=== PATIENT | male | born 1940 | race Caucasian/White ===

== ENCOUNTER 2016-10-13 08:04 | Day surgery (SDC) | payer MEDICARE ==
[~2016-10-13 08:04] MED LIST: LACTATED RINGERS 1,000 ML IV SCH
[2016-10-13 08:47] VITALS: RESP 16; TEMP 98.1
[2016-10-13 08:54] LABS: Glucose,Whole Blood 87 mg/dL (75-99)
[2016-10-13] MEDS ORDERED: LIDOCAINE 1% 20 ML VIAL (10MG/ML) FOR IV START INTRADERMA ONE (08:54)
[2016-10-13] MEDS ORDERED: PROPOFOL 10 MG/ML 20 ML VIAL IV ONE (09:29)
[2016-10-13] MEDS ORDERED: ePHEDrine 50 MG/ML 1 ML AMP ONE (09:29)
[2016-10-13] MEDS ORDERED: fentaNYL (PF) 50 MCG/ML 2 ML AMP ONE (09:29)
[2016-10-13] MEDS ORDERED: MIDAZOLAM 2 MG/2 ML VIAL ONE (09:29)
--- NOTE | 2016-10-13 10:22 | P.PCN ---
Date of Procedure: 10/13/16 Procedure(s) Performed: BRIEF HISTORY: Patient is a 76-year-old pleasant white male, scheduled for an elective colonoscopy as a part of evaluation of prior history of colon polyps. Last colonoscopy was in 5 years ago. PROCEDURE PERFORMED: Colonoscopy with snare polypectomy. PREOPERATIVE DIAGNOSIS: History of colon polyps. IV sedation per Anesthesia. PROCEDURE: After informed consent was obtained, the patient, was brought into the endoscopy unit. IV conscious sedation was administered by Anesthesia under continuous monitoring. Initially the Olympus CF-160 flexible video colonoscope was then inserted in the rectum, gradually advanced into the cecum with moderate to severe difficulty Careful examination was performed as the scope was gradually being withdrawn. Ileocecal valve and the appendiceal orifice were visualized and appeared normal. Prep was excellent. Mucosa of the cecum, ascending colon, transverse colon, descending colon, sigmoid colon, and rectum appeared normal. In the rectum there were 2 small 5 mm polyps removed by snare polypectomy. Moderate left sided diverticulosis seen. Retroflexion was performed in the rectum and no lesions were seen. The patient tolerated the procedure well. IMPRESSION: 2 small 5 mm distal rectal polyp status post snare polypectomy Sigmoid diverticulosis. RECOMMENDATIONS: Findings of this examination were discussed with the patient well as her family. He was advised to follow with the biopsy results. If the biopsy shows a tubular adenoma he can have a repeat colonoscopy in 5 years..
[2016-10-13 10:27] VITALS: BP 136/84; PULSE 67
== END 2016-10-13 10:50 | disposition home or self-care (01) ==
LOC: ORWHC2ENDO 08:04
PROVIDERS: ATTEND Internal Medicine Gastroenterology
DX: Z12.11 Encounter for screening for malignant neoplasm of colon (principal); Z86.010 Personal history of colon polyps; K62.1 Rectal polyp; K57.30 Diverticulosis of large intestine without perforation or abscess without bleeding; I25.10 Atherosclerotic heart disease of native coronary artery without angina pectoris; E78.5 Hyperlipidemia, unspecified; E11.9 Type 2 diabetes mellitus without complications; Z79.84 Long term (current) use of oral hypoglycemic drugs; Z79.82 Long term (current) use of aspirin; Z79.899 Other long term (current) drug therapy; Z87.891 Personal history of nicotine dependence
CPT/HCPCS: 88305; 45385; J2250; J3010; J2704

== ENCOUNTER → 2016-11-07 | Outpatient (CLI) | payer MEDICARE ==
[2016-11-07 13:23] LABS: Blood Urea Nitrogen 18 mg/dL (9-20); Non-African American GFR(MDRD) >60 (>60 ml/min/1.73 sqM)
--- NOTE | 2016-11-07 14:45 | CT ---
EXAMINATION TYPE: CT angio abd aorta wo/w con DATE OF EXAM: 11/07/2016 2:31 PM COMPARISON: 03/10/2016 HISTORY: AAA CT DLP: 2749 mGycm CONTRAST: CTA abdominal aorta with 3-D reconstruction is performed and without and with IV Contrast, patient i njected with 100 ml mL of Omnipaque 350. Contrast CTA of the abdominal aorta was performed from the lung apex through the base of the pelvis. 3-D reconstruction imaging obtained at a separate workstation. ABDOMENAL AORTA: There is a stable infrarenal abdominal aortic aneurysm measuring 4.3 cm in AP dimens ion and 6.3 cm in length. Aneurysm terminates at the level of the aortic bifurcation. Atheromatous ch anges noted. There is no evidence for dissection or paraaortic collection. Iliac vessels are mildly e ctatic without evidence for aneurysm. Branch vessels including the celiac artery, SMA, DELILAH and renal arteries are all patent. Lung bases: Chronic elevation right hemidiaphragm. LIVER/GB-cholecystectomy changes noted. PANCREAS- No significant abnormality is seen. SPLEEN- No significant abnormality is seen. ADRENALS- No significant abnormality is seen. KIDNEYS/BLADDER- No significant abnormality is seen. Simple cyst left kidney is unchanged. BOWEL- No Significant abnormality GENITAL ORGANS: No gross abnormality seen. LYMPH NODES- No greater than 1cm abdominal or pelvic lymph nodes areappreciated. OSSEOUS STRUCTURES- No significant abnormality is seen. OTHER- No significant abnormality is seen. IMPRESSION- Stable infrarenal abdominal aortic aneurysm as discussed without complicating matter.
== END | disposition home or self-care (01) ==
LOC: RADCTMAIN 12:47
PROVIDERS: ATTEND Internal Medicine Interventional Cardiology
DX: I71.4 Abdominal aortic aneurysm, without rupture (principal)
CPT/HCPCS: 82565; 84520; 75635; 36415; Q9967

== ENCOUNTER → 2017-08-16 | Outpatient (CLI) | payer MEDICARE ==
[2017-08-16 15:55] LABS: Blood Urea Nitrogen 19 mg/dL (9-20)
--- NOTE | 2017-08-16 16:48 | CT ---
EXAMINATION TYPE: CT angio abd aorta wo/w con DATE OF EXAM: 08/16/2017 COMPARISON: NONE HISTORY: Elevated blood pressure CT DLP: 2800 mGycm CONTRAST: CTA thoracic and abdominal aorta with 3-D reconstruction is performed and without and with IV Contras t, patient injected with 100 mL of Omnipaque 350. Contrast CTA of the abdominal aorta was performed from the lung bases through the base of the pelvis. 3-D reconstruction imaging obtained at a separate workstation. CONTRAST CT ABDOMEN AND PELVIS ABDOMINAL AORTA: Infrarenal abdominal aortic aneurysm measuring 4.7 cm in AP dimension. Aneurysm cam th is approximately 8.4 cm. There is mild mural thrombus seen. There is no evidence for complicating factor such as dissection, rupture or leak. Aneurysm neck is approximately 3.4 cm. Visualized branch vessels are patent. No periaortic collections seen. Iliac vessels are symmetric and nonaneurysmal. LIVER/GB-unusual hepatic morphology. Correlate for partial hepatectomy changes there is such a histor y. Correlate patient's surgical history. Elevation right hemidiaphragm. The gallbladder is surgically absent. PANCREAS- No significant abnormality is seen. SPLEEN- No significant abnormality is seen. ADRENALS- No significant abnormality is seen. KIDNEYS/BLADDER- No significant abnormality is seen. BOWEL- No Significant abnormality GENITAL ORGANS: No gross abnormality seen. LYMPH NODES- No greater than 1cm abdominal or pelvic lymph nodes areappreciated. OSSEOUS STRUCTURES- No significant abnormality is seen. OTHER- No significant abnormality is seen. IMPRESSION- 1. Infrarenal abdominal aortic aneurysm without complicating factor.
== END | disposition home or self-care (01) ==
LOC: RADCTMAIN 15:19
PROVIDERS: ATTEND Nurse Practitioner Adult Health
DX: I71.4 Abdominal aortic aneurysm, without rupture (principal)
CPT/HCPCS: 82565; 84520; 75635; 36415; Q9967

== ENCOUNTER → 2018-04-26 | Outpatient (CLI) | payer MEDICARE ==
--- NOTE | 2018-04-27 17:20 | CT ---
EXAMINATION TYPE: CT angio abd aorta w/Runoff DATE OF EXAM: 04/26/2018 COMPARISON: 08/16/2017 HISTORY: Abdominal aortic aneurysm, without rupture CT DLP: 1819.4 mGycm, Automated Exposure Control for Dose Reduction was Utilized. CONTRAST: CT scan of the abdomen and pelvis is performed with oral and with IV Contrast, patient injected with 125 mL of Isovue 370. Contrast CTA of the abdominal aorta was performed from the lung bases through t he base of the pelvis. 3-D reconstruction imaging obtained at a separate workstation. FINDINGS: LUNG BASES: There is chronic right hemidiaphragm elevation. Coronary artery calcifications are again seen. Subpleural reticulation indicative of pulmonary fibrosis and bibasilar atelectasis are also not ed. Subpleural deposition of fat is also seen. LIVER/GB: Partial hepatectomy is again suspected with irregular contour of the right hepatic lobe and surgical absence of the gallbladder. Low-density of the liver also relates to hepatic steatosis. PANCREAS: Atrophic changes noted throughout the pancreatic parenchyma. No ductal dilatation. SPLEEN: No significant abnormality is seen. ADRENALS: No significant abnormality is seen. KIDNEYS: There is mild cortical renal atrophy indicative of mild medical renal disease. Similar-appea ring left renal cyst is noted. Retroaortic left renal vein is incidentally seen. BOWEL: Scattered colonic diverticula are present without pericolonic fat stranding. LYMPH NODES: No greater than 1cm abdominal or pelvic lymph nodes are appreciated. OSSEOUS STRUCTURES: Multilevel degenerative disc disease is mild throughout the spine most exaggerate d at L5-S1. Mild tricompartmental arthropathy is seen of both knees and mild femoral acetabular arthr opathy is also noted VASCULAR: There is redemonstration of an infrarenal abdominal aortic aneurysm measuring approximately 4.8 x 4.8 cm, overall unchanged from the previous measurement of 4.7 cm given differences in measure ment technique. Again mild mural thrombus is noted. Craniocaudal dimension measures approximately 8.5 cm. No extent into the common iliac arteries. Mild atherosclerosis is seen of the femoral arteries a nd posterior tibial arteries with three-vessel runoff appreciated to the level of the mid tibial diap hyses. Distal to this contrast opacification of the arteries is poor likely due to bolus timing. IMPRESSION: 1. Overall stable fusiform infrarenal abdominal aortic aneurysm measuring approximately 4.8 cm withou t extent into the common iliac arteries. Mild atherosclerosis is noted throughout the vasculature wit h no focal occlusion or significant stenosis (greater than 50% luminal diameter). 2. 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
== END | disposition home or self-care (01) ==
LOC: RADCTMAIN 12:53
PROVIDERS: ATTEND Internal Medicine Interventional Cardiology
DX: I71.4 Abdominal aortic aneurysm, without rupture (principal); I70.209 Unspecified atherosclerosis of native arteries of extremities, unspecified extremity
CPT/HCPCS: 82565; 84520; 75635; 36415; Q9967

== ENCOUNTER → 2018-10-30 | Outpatient (CLI) | payer MEDICARE ==
[2018-10-30 13:30] LABS: HCT 45.6 % (39.0-53.0); HGB 15.3 gm/dL (13.0-17.5); MCH 31.8 pg (25.0-35.0); MCHC 33.6 g/dL (31.0-37.0); MCV 94.7 fL (80.0-100.0); Mean Platelet Volume 8.5; Platelet Count 146 k/uL (150-450); RBC 4.81 m/uL (4.30-5.90); RDW 14.5 % (11.5-15.5); WBC 5.7 k/uL (3.8-10.6)
[2018-10-30 13:42] LABS: Potassium 4.7 mmol/L (3.5-5.1); Uric Acid 7.1 mg/dL (3.5-8.5)
[2018-10-30 13:57] LABS: T4, Free (Free Thyroxine) 1.08 ng/dL (0.78-2.19)
== END | disposition home or self-care (01) ==
LOC: LABWHC1 12:05
PROVIDERS: ATTEND Nurse Practitioner Adult Health
DX: Z01.812 Encounter for preprocedural laboratory examination (principal); I71.4 Abdominal aortic aneurysm, without rupture; M10.9 Gout, unspecified
CPT/HCPCS: 36415; 80051; 82565; 84439; 84443; 84520; 84550; 85027

== ENCOUNTER 2018-11-13 06:01 | Inpatient (IN) | payer MEDICARE ==
[2018-11-08 10:42] VITALS: BMI 31.7
[~2018-11-13 06:01] MED LIST changes: +ALPRAZolam 0.25 MG TAB PO PRN; +HYDROmorphone 0.5 MG/0.5 ML SYRINGE IVP PRN; -LACTATED RINGERS 1,000 ML IV SCH; +LIDOCAINE 1% 20 ML VIAL (10MG/ML) FOR IV START INTRADERMA PRN; +ONDANSETRON 4 MG/2 ML VIAL IVP ONE; +SODIUM CHLORIDE 0.9% 1,000 ML in EMPTY BAG 1 BAG IV ONE
[2018-11-13 06:42] LABS: Glucose,Whole Blood 114 mg/dL (75-99)
[2018-11-13 06:50] LABS: Basophils % (A) 1 %; Eosinophils # (A) 0.3 k/uL (0-0.7); Eosinophils % (A) 6 %; HCT 45.6 % (39.0-53.0); HGB 15.5 gm/dL (13.0-17.5); Lymphocytes # (A) 0.9 k/uL (1.0-4.8); Lymphocytes % (A) 19 %; MCH 31.6 pg (25.0-35.0); MCV 93.1 fL (80.0-100.0); Mean Platelet Volume 8.5; Monocytes # (A) 0.6 k/uL (0-1.0); Monocytes % (A) 12 %; Neutrophils # (A) 2.8 k/uL (1.3-7.7); Neutrophils % (A) 58 %; Platelet Count 154 k/uL (150-450); RDW 14.8 % (11.5-15.5); WBC 4.8 k/uL (3.8-10.6)
[2018-11-13 07:02] LABS: Calcium 9.6 mg/dL (8.4-10.2); Potassium 4.2 mmol/L (3.5-5.1)
[2018-11-13] MEDS ORDERED: PROTAMINE SULFATE 10 MG/ML 5 ML VIAL IV ONE (07:30)
[2018-11-13] MEDS ORDERED: PROPOFOL 10 MG/ML 20 ML VIAL IV ONE (07:30)
[2018-11-13] MEDS ORDERED: MIDAZOLAM 2 MG/2 ML VIAL ONE (07:30)
[2018-11-13] MEDS ORDERED: fentaNYL (PF) 50 MCG/ML 2 ML AMP ONE (07:30)
[2018-11-13] MEDS ORDERED: HEPARIN SODIUM,PORCINE 10,000 UNIT/ML 1 ML VIAL ONE (07:30)
[2018-11-13] MEDS ORDERED: LIDOCAINE 1% INJ 10MG/ML (20 ML MDV) ONE (07:30)
[2018-11-13] MEDS ORDERED: SUCCINYLCHOLINE CHLORIDE 100 MG/5 ML SYR IV ONE (07:30)
[2018-11-13] MEDS ORDERED: ePHEDrine SULFATE/0.9% NACL/PF 50 MG/5 ML SYRINGE IV ONE (07:30)
[2018-11-13] MEDS ORDERED: ceFAZolin 1,000 MG VIAL ONE (07:30)
[2018-11-13] MEDS ORDERED: IV FLUID CONTINUATION 950 ML IV ONE (07:40)
[2018-11-13] MEDS ORDERED: IOPAMIDOL-250 100ML BTL INTRAARTER ONE ×2 (09:54)
[2018-11-13] MEDS ORDERED: SODIUM CHLORIDE 0.9% 1,000 ML IV SCH (10:15)
[2018-11-13 10:41] LABS: Glucose,Whole Blood 91 mg/dL (75-99)
[2018-11-13 11:17] LABS: Glucose,Whole Blood 104 mg/dL (75-99)
[2018-11-13 11:53] LABS: Basophils % (A) 0 %; Eosinophils # (A) 0.3 k/uL (0-0.7); Eosinophils % (A) 4 %; HCT 42.8 % (39.0-53.0); HGB 14.3 gm/dL (13.0-17.5); Lymphocytes # (A) 0.9 k/uL (1.0-4.8); Lymphocytes % (A) 14 %; MCH 32.2 pg (25.0-35.0); MCHC 33.4 g/dL (31.0-37.0); MCV 96.3 fL (80.0-100.0); Mean Platelet Volume 8.1; Monocytes # (A) 0.6 k/uL (0-1.0); Monocytes % (A) 9 %; Neutrophils # (A) 4.6 k/uL (1.3-7.7); Neutrophils % (A) 70 %; Platelet Count 114 k/uL (150-450); RBC 4.44 m/uL (4.30-5.90); WBC 6.5 k/uL (3.8-10.6)
[2018-11-13] MEDS: MULTIVITAMINS, THERA 1 EACH TAB PO SCH (12:05)
[2018-11-13 12:07] LABS: Calcium 8.8 mg/dL (8.4-10.2)
[2018-11-13 12:11] LABS: Potassium 4.3 mmol/L (3.5-5.1)
--- NOTE | 2018-11-13 13:51 | IR ---
Fluoroscopy HISTORY: Pain 41.3 minutes fluoroscopy time supplied to the referring clinician. 157 intraoperative C-arm images d ocument the procedure. See dictated report from cardiology.
[2018-11-13] MEDS: LACTATED RINGERS 1,000 ML IV SCH (14:59)
[2018-11-13] MEDS: INSULIN ASPART (NovoLOG) 100 UNIT/ML VIAL SQ SCH ×3 (15:01→21:05)
[2018-11-13 17:12] LABS: Glucose,Whole Blood 95 mg/dL (75-99)
[2018-11-13] MEDS ORDERED: CARVEDILOL 6.25 MG TAB PO SCH (17:30)
--- NOTE | 2018-11-13 17:35 | AN ---
ANGIOGRAPHY REPORT DATE OF SERVICE: November 13, 2018 PERFORMING PHYSICIAN: 1. Dmitry Acharya D.O. 2. Virgil Ann MD. PROCEDURE PERFORMED: 1. Successful coiling of the right accessory renal artery using 4 x 30 coil. 2. Successful endovascular repair of abdominal aortic aneurysm using the ovation IX device with an excellent results by the end and without any evidence of endoleak. INDICATION: This is a pleasant 78-year-old gentleman with history of abdominal aortic aneurysm which was enlarging with the last CT scan showing an infrarenal abdominal aortic aneurysm of 5.3 cm. The aneurysm was growing and because of that endovascular repair was advised. APPROACH: 1. Right common femoral artery. 2. Left common femoral artery. COMPLICATION: None. SEDATION: Level of sedation: Deep sedation was performed under general anesthesia. PROCEDURE DESCRIPTION: After informed consent, the patient was brought to the cardiac labelling machine operator. Both groins were prepped and draped in the usual sterile fashion. The patient was placed under general anesthesia with DIRECTOR HEALTH in the room. Subsequently, we cannulated the right and left common femoral artery using an 18-gauge Cook needle, under ultrasound guidance, and after that we advanced an 0.035 Glidewire. At that point, we did place 2 Perclose at 10 and 2 o'clock on each side of the right and left common femoral arteries. After that, anticoagulation was initiated using heparin with continuous ACT monitoring throughout the procedure. Subsequently, we did cannulate the right right renal accessory artery. After that, we did coiling of that artery using 4 x 30 coil with sluggish flow in the artery after the coil. After that, we did an angiogram to measure the vessel length and characterized the anatomy. That was performed using a pigtail catheter. Subsequently, we loaded 20 mm ovation IX aortic lindsey delivery system over a stiff 035 Amplatzer wire. We inserted the delivery system into the aorta until the implant radiopaque makers were about 1 mm proximal to the intended landing zone. Of course, before we did that, we did an aortogram using a pigtail catheter to localize both renal arteries. We oriented the aortic lindsey to the desired position for appropriate access to the contralateral aortic body limb. We inserted the lindsey from the left groin. Subsequently, we retracted delivery system outer sheath until the sheath retraction knob met handle. Then we verified the AB radial path marker and long delivery system radiopaque marker to be in the correct position. Then after that, we deployed the first segment of the proximal stent by turning the first stent release knob half turn counter-clockwise and then steadily pulled and then we steadily pulled the knob and the attached the wire from the handle. Then precisely we positioned the implant radiopaque marker at final proximal landing site. Then we retracted the angiographic catheter away from the proximal stent. That was a pigtail catheter which was removed. Then we deployed the remainder of the proximal stent by turning 2nd stent release knob half turn counter-clockwise and then I steadily pulled the knob and the attached wire from the handle. Then we removed the Green fill cap from injection port on handle and attached the filled syringe to it. We retracted the aortic lindsey guidewire tip to the radiopaque marker distal to the aortic lindsey. We used fluoroscopy to intermittently to observe the filling of the graft with radiopaque fill . We had a hard time to cannulate the contralateral limb in the retrograde fashion. At that point, we did use an Omni flush catheter at the limb bifurcation to wire the contralateral limb. Then we were able to snare the Glidewire via the contralateral limb. After that, we exchanged the [place] wire into an Amplatzer wire using the JR4 catheter which was used initially to cannulate the right renal accessory artery. Subsequently, we did on the on the left side, which was the ipsilateral side, we did advanced a pigtail catheter which was a marker pigtail catheter and we did an angiogram to measure the ipsilateral limb length. On the ipsilateral, we loaded a 14 x 140 limb delivery system. The limb was deployed under fluoroscopy guidance. On the contralateral side, we loaded 16 x 140 iliac limb delivery system as well which was again deployed under fluoroscopy guidance. After that, we did final angiogram using a pigtail catheter which showed no evidence of endoleak. Finally, we achieved good hemostasis of both groins using the Perclose device. The procedure was completed without any complication. POSTPROCEDURE MANAGEMENT: 1. ICU admission. 2. Standard groin care. 3. Monitor the groin for hematoma. 4. Follow up with the patient. MMODL / IJN: [id number] /
[2018-11-13 20:38] LABS: Glucose,Whole Blood 135 mg/dL (75-99)
[2018-11-13] MEDS ORDERED: CARVEDILOL 6.25 MG TAB PO STA (20:56)
[2018-11-13] MEDS ORDERED: hydrALAZINE HCL 10 MG TAB PO PRN (20:57)
[2018-11-13] MEDS ORDERED: ASPIRIN 81 MG PO SCH (21:00)
[2018-11-13] MEDS ORDERED: ATORVASTATIN 20 MG TAB PO SCH (21:00)
[2018-11-13] MEDS: FAMOTIDINE 20 MG TAB PO SCH (21:06)
[2018-11-14 05:01] LABS: HCT 39.1 % (39.0-53.0); HGB 13.5 gm/dL (13.0-17.5); MCHC 34.7 g/dL (31.0-37.0); MCV 95.3 fL (80.0-100.0); Mean Platelet Volume 8.1; Platelet Count 130 k/uL (150-450); RDW 13.9 % (11.5-15.5); WBC 9.8 k/uL (3.8-10.6)
[2018-11-14 05:03] VITALS: RESP 18
[2018-11-14 05:10] LABS: Calcium 8.9 mg/dL (8.4-10.2); Magnesium 1.9 mg/dL (1.6-2.3); Phosphorus 3.6 mg/dL (2.5-4.5)
[2018-11-14] MEDS ORDERED: Magnesium Replacement Protocol 1 EACH MISC MISCELLANE PRN (05:43)
[2018-11-14] MEDS: LACTATED RINGERS 1,000 ML IV SCH (06:02)
[2018-11-14] MEDS: MAGNESIUM SULFATE-D5W PMX 1 GM in DEXTROSE/WATER 1 100ML.BAG IVPB SCH ×2 (06:02→07:01)
[2018-11-14 07:07] LABS: Glucose,Whole Blood 134 mg/dL (75-99)
[2018-11-14] MEDS: INSULIN ASPART (NovoLOG) 100 UNIT/ML VIAL SQ SCH (07:08)
[2018-11-14] MEDS ORDERED: CARVEDILOL 12.5 MG TAB PO SCH (07:30)
--- NOTE | 2018-11-14 07:50 | DS ---
DISCHARGE SUMMARY ADMISSION DATE: November 13, 2018 DISCHARGE DATE: November 14, 2018 BRIEF HISTORY: This is a pleasant 78-year-old gentleman who was diagnosed recently with abdominal aortic aneurysm and underwent successful endovascular repair of abdominal aortic aneurysm using the using the Ovation iX device with good angiographic results and without any evidence of endoleak by the end of the procedure. We did also do successful coiling of the right accessory renal vein. On follow up with him today, he is doing good and he is asymptomatic. Both groins are soft and nontender and without any bruises. I am going to get the patient up and around and going to discharge the patient home. I will follow up with me early next week with a blood work to check his kidney function. MMODL / IJN: [id number] /
[2018-11-14] MEDS ORDERED: NON-FORMULARY DRUG (Fish Oil/Dha/Epa [Fish Oil 1,200 Mg Fish Oil] 1 EACH) PO SCH (09:00)
[2018-11-14] MEDS ORDERED: LOSARTAN 50 MG TAB PO SCH (09:00)
[2018-11-14] MEDS ORDERED: LORATADINE 10 MG TAB PO SCH (09:00)
[2018-11-14] MEDS: MULTIVITAMINS, THERA 1 EACH TAB PO SCH (10:52)
[2018-11-14] MEDS: FAMOTIDINE 20 MG TAB PO SCH (10:53)
[2018-11-14 14:10] VITALS: BP 143/63; PULSE 57; TEMP 97.6
== END 2018-11-14 14:15 | disposition home or self-care (01) | DRG 269 ==
LOC: 2ORMAIN 06:01 → 2SICU 10:01
PROVIDERS: ADMIT Internal Medicine Interventional Cardiology; ATTEND Internal Medicine Interventional Cardiology
PROC: 04V03EZ Restriction of Abdominal Aorta with Branched or Fenestrated Intraluminal Device, One or Two Arteries, Percutaneous Approach (ICD-10-PCS; principal; 2018-11-13 07:40)
DX: I71.4 Abdominal aortic aneurysm, without rupture (principal); E11.9 Type 2 diabetes mellitus without complications; I35.2 Nonrheumatic aortic (valve) stenosis with insufficiency; I25.10 Atherosclerotic heart disease of native coronary artery without angina pectoris; I10 Essential (primary) hypertension; E78.5 Hyperlipidemia, unspecified; G47.33 Obstructive sleep apnea (adult) (pediatric); K21.9 Gastro-esophageal reflux disease without esophagitis; Z79.84 Long term (current) use of oral hypoglycemic drugs; Z79.82 Long term (current) use of aspirin; Z79.899 Other long term (current) drug therapy; Z87.39 Personal history of other diseases of the musculoskeletal system and connective tissue; Z87.891 Personal history of nicotine dependence
CPT/HCPCS: 80048; 83735; 84100; 85025; 85027; 86850; 86900; 86901

== ENCOUNTER → 2018-11-18 | Outpatient (CLI) | payer MEDICARE ==
[2018-11-18 19:26] LABS: Anion Gap 9.5 mmol/L (4.00-12.00); Calcium 9.2 mg/dL (8.7-10.3); Carbon Dioxide 27.5 mmol/L (21.6-31.8); Potassium 4.2 mmol/L (3.5-5.5)
== END | disposition home or self-care (01) ==
LOC: LABWHC1 13:35
PROVIDERS: ATTEND Internal Medicine Interventional Cardiology
DX: N28.9 Disorder of kidney and ureter, unspecified (principal)
CPT/HCPCS: 36415; 80048

== ENCOUNTER → 2018-12-10 | Outpatient (CLI) | payer MEDICARE | END | disposition home or self-care (01) | LOC: RADUSWWP 08:47 | PROVIDERS: ATTEND Family Medicine | DX: R09.89 Other specified symptoms and signs involving the circulatory and respiratory systems (principal) | CPT/HCPCS: 93922 ==

== ENCOUNTER → 2019-01-02 | Outpatient (CLI) | payer MEDICARE ==
--- NOTE | 2019-01-02 10:45 | CT ---
EXAMINATION TYPE: CT angio abdomen DATE OF EXAM: 01/02/2019 COMPARISON: CT a April 26, 2018 HISTORY: Abdominal aortic aneurysm without rupture, recent repair CT DLP: 1747.8 mGycm, Automated Exposure Control for Dose Reduction was Utilized. CONTRAST: CTA scan of the abdomen and upper pelvis is performed without oral and without and with IV Contrast, patient injected with 80 mL of Isovue 370. Aneurysm protocol with Three-D reconstructed images create d on independent workstation and reviewed. FINDINGS: Vascular: There is redemonstration of [place] infrarenal AAA measuring up to 5.3 x 5.1 cm transversely axial image 61 slightly increased in size from prior CT where I get measurements up to 4.7 cm. Lengt h of aneurysm measures 6 to 7 cm and does not extend into the bifurcation. There is interval placemen t of aortobiiliac stent graft beginning suprarenal location near celiac artery origin appears patent but there is intraluminal enhancement right anterior aspect axial image 56 series 14 and left lateral aspect axial image 57 through 60 likely from a feeding lumbar vessel. There is patent celiac artery, SMA, bilateral single renal arteries on current study. There is patent DELILAH identified. There is new prominent surgical clip right periaortic region causing streak artifact axial image 50 anterior to th e IVC. LUNG BASES: Elevated right hemidiaphragm is redemonstrated. LIVER/GB: Cholecystectomy clips are redemonstrated. Stable appearance to the liver with right-sided p artial hepatectomy changes again seen. PANCREAS: Stable mild diffuse fat replaced atrophy of pancreas. SPLEEN: No significant abnormality is seen. ADRENALS: No significant abnormality is seen. KIDNEYS: There are areas of noncortical enhancement and cortical thinning involving the inferior 1/3- 1/2 of the right kidney extending anteriorly and superiorly. On prior exam there were 2 patent right renal arteries, on current study there is nonvisualization of the more inferior anterior right renal artery suggesting interval surgical resection given presence of new surgical clip on axial image 49. BOWEL: Diverticulosis in the left and sigmoid colon is present. Occasional diverticula also seen in t he transverse colon. No CT evidence for acute diverticulitis. No suspicious small or large bowel dila tation. LYMPH NODES: No greater than 1cm abdominal lymph nodes are appreciated. OSSEOUS STRUCTURES: Moderate multilevel spurring in the spine. Severe disc space narrowing lumbosacra l junction with moderate spurring. OTHER: No significant additional abnormality is seen. IMPRESSION: Interval placement of aortobiiliac stent graft which is patent but there is CTA evidence for type II endoleak and there is increasing aneurysmal size to the [place] abdominal aorta from 4.7 c m to 5.3 cm in addition there has been suspected interval resection or occlusion of accessory inferio r right renal artery causing nonenhancement and cortical atrophy of the inferior one third of the rig ht kidney.
== END | disposition home or self-care (01) ==
LOC: RADCTMAIN 08:41
PROVIDERS: ATTEND Internal Medicine Interventional Cardiology
DX: I71.4 Abdominal aortic aneurysm, without rupture (principal)
CPT/HCPCS: 82565; 84520; 74175; 36415; Q9967

== ENCOUNTER → 2019-04-22 | Outpatient (CLI) | payer MEDICARE ==
--- NOTE | 2019-04-22 14:29 | CT ---
EXAMINATION TYPE: CT angio chest DATE OF EXAM: 04/22/2019 10:28 AM COMPARISON: None HISTORY: Aortic Abdominal Aneurysn without rupture CT DLP: 823 mGycm Automated exposure control for dose reduction was used. CONTRAST: CTA scan of the thorax is performed without and with IV Contrast, patient injected with 100 ml mL of Isovue 370, pulmonary embolism protocol. . FINDINGS: LUNGS: Coarsened interstitium can be associated with chronic interstitial lung disease such as fibros is. Patchy groundglass changes are dominantly the right lung may been the basis of atelectasis or mil d pneumonitis. Pleural-based density on image 31 appears to be postinflammatory measuring 4 mm. MEDIASTINUM: There is satisfactory enhancement of the pulmonary artery and its branches, there is no CT evidence for pulmonary embolism. There are no greater than 1 cm hilar or mediastinal lymph nodes. Aorta is of normal caliber with a maximal dimension of 3.5 cm involving the ascending aorta. Dense c oronary artery calcification is noted and there is calcification along the root of the aortic valve. OTHER: Postsurgical changes involving the abdomen are noted hypertrophic and degenerative change spi ne is elevated right hemidiaphragm noted. Findings suggest previous cholecystectomy and partial hepat ectomy. The upper thoracic aorta appears to be portions appear to be aortic stent graft. Correlate cl inically. IMPRESSION: 1. No diagnostic evidence of thoracic aortic aneurysm. 2. Dense three-vessel coronary artery calcification with aortic valve calcification. 3. Findings suggest chronic interstitial lung disease such as fibrosis correlate clinically. Underlyi ng pneumonitis is not excluded
== END | disposition home or self-care (01) ==
LOC: RADCTMAIN 08:01
PROVIDERS: ATTEND Nurse Practitioner Adult Health
DX: I25.10 Atherosclerotic heart disease of native coronary artery without angina pectoris (principal); I70.0 Atherosclerosis of aorta; I71.4 Abdominal aortic aneurysm, without rupture
CPT/HCPCS: 82565; 84520; 71275; 36415; Q9967

== ENCOUNTER → 2019-05-09 | Outpatient (CLI) | payer MEDICARE ==
--- NOTE | 2019-05-09 08:06 | CT ---
EXAMINATION TYPE: CT chest wo con DATE OF EXAM: 05/09/2019 COMPARISON: CTA chest 17 days ago. Chest x-ray March 13, 2013. HISTORY: Fibrosis of lung CT DLP: 696 mGycm. Automated Exposure Control for Dose Reduction was Utilized. TECHNIQUE: CT scan of the thorax is performed without IV contrast. FINDINGS: LUNGS: Persistent elevated right hemidiaphragm. Reticulation and fibrotic changes in the periphery of the right lung with relative sparing of the lung apex and more prominent mid to lower lung aspects. There are fibrotic changes in the left lung base just above the diaphragm. There is some additional l inear scarring and/or atelectasis in the left lung base. There is minimal relative sparing of the lef t mid to lower lung. No pleural effusion or pneumothorax is noted bilaterally. MEDIASTINUM: Lack of IV contrast is noted to limit evaluation for mediastinal and especially hilar ad enopathy. There are no definitive greater than 1 cm hilar or mediastinal lymph nodes. No cardiomega ly or pericardial effusion is seen. Moderate to severe three-vessel coronary artery calcification and /or stents. Calcification at level of aortic valve. OTHER: Cholecystectomy clips are redemonstrated. IMPRESSION: Chronically elevated right hemidiaphragm. Bibasilar fibrotic changes. Increased periphera l fibrotic changes right mid to lower lung. No acute pulmonary process. No significant change from re cent CTA chest study.
== END | disposition home or self-care (01) ==
LOC: RADCTMAIN 07:28
PROVIDERS: ATTEND Family Medicine
DX: J98.6 Disorders of diaphragm (principal); J84.10 Pulmonary fibrosis, unspecified
CPT/HCPCS: 71250

== ENCOUNTER → 2019-07-14 | Outpatient (CLI) | payer MEDICARE ==
--- NOTE | 2019-07-14 11:14 | CT ---
EXAMINATION TYPE: CT angio abdomen pelvis DATE OF EXAM: 07/14/2019 COMPARISON: 01/02/2019 HISTORY: Aortic aneurysm without rupture CT DLP: 1628 mGycm CONTRAST: CTA abdominal aorta with 3-D reconstruction is performed without Oral Contrast and with IV Contrast, patient injected with 80 mL of Isovue 370. Contrast CTA of the abdominal aorta was performed from the lung bases through the base of the pelvis. 3-D reconstruction imaging obtained at a separate workstation. CONTRAST CT ABDOMEN AND PELVIS ABDOMINAL AORTA: Aortoiliac stent graft again noted to be in place. Type II endoleak redemonstrated a t 2 sites 1 proximally and one more distally at the bifurcation. Aneurysm currently measures 5.6 cm A P dimension versus 5.6 cm previously. No new areas of endoleak appreciated. LIVER/GB-partial hepatectomy changes redemonstrated. PANCREAS- No significant abnormality is seen. SPLEEN- No significant abnormality is seen. ADRENALS- No significant abnormality is seen. KIDNEYS/BLADDER-renal cystic changes identified. Atrophic change right kidney with right-sided lower pole infarct again noted. BOWEL- No Significant abnormality GENITAL ORGANS: No gross abnormality seen. LYMPH NODES- No greater than 1cm abdominal or pelvic lymph nodes are appreciated. OSSEOUS STRUCTURES- No significant abnormality is seen. [id number] inguinal hernias noted. IMPRESSION- 1.Type II endoleak redemonstrated at 2 sites 1 proximally and one more distally at the bifurcation. A neurysm currently measures 5.6 cm AP dimension versus 5.6 cm previously. No new areas of endoleak luann reciated. 2. Stable infarct lower pole right kidney with atrophic change noted.
== END | disposition home or self-care (01) ==
LOC: RADCTMAIN 07:23
PROVIDERS: ATTEND Internal Medicine Interventional Cardiology
DX: I71.4 Abdominal aortic aneurysm, without rupture (principal); T82.898A Other specified complication of vascular prosthetic devices, implants and grafts, initial encounter; N28.0 Ischemia and infarction of kidney; N26.1 Atrophy of kidney (terminal)
CPT/HCPCS: 82565; 84520; 36415; 74174; Q9967

== ENCOUNTER → 2019-12-05 | Outpatient (CLI) | payer MEDICARE ==
--- NOTE | 2019-12-05 17:12 | CT ---
EXAMINATION TYPE: CT angio abdomen pelvis DATE OF EXAM: 12/05/2019 COMPARISON: HISTORY: follow up abdominal aortic aneurysm CT DLP: 2287.9 mGycm Automated exposure control for dose reduction was used. CONTRAST: CTA abdominal aorta with 3-D reconstruction is performed without Oral Contrast and with IV Contrast, patient injected with 100 mL of Isovue 370. Contrast CTA of the abdominal aorta was perform ed from the lung bases through the base of the pelvis. 3-D reconstruction imaging obtained at a [place] workstation. CONTRAST CT ABDOMEN AND PELVIS LUNGS: Groundglass changes are seen bilaterally suggestive of atelectasis. Subsegmental consolidation also noted. Interlobular septal thickening suggest a degree of chronic interstitial lung disease and there is evidence of mild basilar bronchiectasis. Coronary artery calcification noted. Calcification of the aortic valve stable. ABDOMINAL AORTA: Aortoiliac stent graft again noted to be in place. Type II endoleak redemonstrated a t two sites. One proximally and one more distally at the bifurcation. Aneurysm currently measures 5. 9 x 5.4 cm AP dimension versus 5.6 cm previously. No new areas of endoleak appreciated. Atherosclerot ic change of the aortic side branches retroaortic left renal vein incidentally noted LIVER/GB-partial hepatectomy changes redemonstrated. PANCREAS- No significant abnormality is seen. SPLEEN- No significant abnormality is seen. ADRENALS- No significant abnormality is seen. KIDNEYS/stable left renal cyst. Atrophic change right kidney with right-sided lower pole infarct agai n noted. BOWEL-diverticulosis of the colon. Bowel gas pattern nonspecific. GENITAL ORGANS: No gross abnormality seen. LYMPH NODES- No greater than 1cm abdominal or pelvic lymph nodes are appreciated. OSSEOUS STRUCTURES-hypertrophic and degenerative changes spine with a slight anterolisthesis L5 relat calvin to S1 with suspected spondylolysis.. [id number] inguinal hernias noted. Mild bladder wall thickening can be associated with chronometer assembler juana cystitis. IMPRESSION- 1.Type II endoleak redemonstrated . [place] aneurysm sac currently measures 5.9 cm AP dimension versus 5.6 cm previously increased in size from the prior exam. 2. Stable infarct lower pole right kidney with atrophic change noted.
== END | disposition home or self-care (01) ==
LOC: RADCTMAIN 10:07
PROVIDERS: ATTEND Internal Medicine Interventional Cardiology
DX: N28.0 Ischemia and infarction of kidney (principal); N26.1 Atrophy of kidney (terminal)
CPT/HCPCS: 82565; 84520; 36415; 74174; Q9967

== ENCOUNTER → 2020-06-23 | Outpatient (CLI) | payer MEDICARE ==
--- NOTE | 2020-06-23 13:33 | CT ---
EXAMINATION TYPE: CT angio abdomen pelvis DATE OF EXAM: 06/23/2020 COMPARISON: 12/05/2019 HISTORY: 80-year-old male I71.4, Follow up to AAA stent TECHNIQUE: Contiguous axial scanning of the abdomen and pelvis before and after administration of 100 ml Isovue-370 IV contrast. Delayed images through the patient's stent graft were also obtained. Denzel nal and sagittal reconstructions performed. 3-D reconstructions generated on a dedicated independent workstation. CT DLP: 2679.3 mGycm Automated exposure control for dose reduction was used. FINDINGS: Heart normal size without pericardial effusion. Three-vessel coronary artery calcifications are prese nt as well as mild arthroscopic calcifications of the aortic valve. Ectatic aortic root and ascending aorta at 3.6 cm. Volume loss at the right base with patchy atelectasis and/or scarring and chronic eventration right h emidiaphragm. There is bibasilar bronchiolectasis and left basilar reticular densities fairly similar compared to 2 018. Stable contour deformity along the lateral aspect of the right liver lobe with a few subcentimeter hy podensities too small for accurate CT characterization, probable tiny cysts. Cholecystectomy clips. P ortal venous system is patent. Adrenal glands, spleen, and pancreas show no gross remodeling. Redemonstrated 2.2 cm cortical cyst lateral left kidney. Retroaortic left renal vein. Atrophic right kidney redemonstrated with delayed enhancement of the lower pole that appears to be du e to the presence of accessory right renal artery. Redemonstrated aortobiiliac endovascular stent graft extending from the level of the celiac axis. Nei ther sac measures 6.2 x 5.5 cm versus 6.2 x 5.2 cm, previously. However, there is new nodular contrast within the posterior aspect of the [place] sac at the junction of the radiolucent segment of the stent and the iliac artery stents can be seen on the arterial arter ies and better seen on the delayed scan. The type II endoleak seen along the left side of the [place] sac more inferiorly appears smaller measu ring 7 mm versus 1.3 cm, previously. Refer to the delayed axial images. The bilateral stented common iliac arteries measure up to 1.6 cm. No dilated small bowel, free fluid, or free air. No mesenteric or retroperitoneal lymphadenopathy. Scattered mild to moderate stool. Tiny fatty umbilical hernia. Generalized colonic diverticulosis. Mi ldly redundant sigmoid colon. No pericolonic inflammatory change. Circumferential bladder wall thickening could represent cystitis or chronic bladder wall hypertrophy. . Prostate gland measures 4.9 cm wide. Patulous bilateral inguinal canals, suspect small fatty inguin al hernias on both sides. Multiple pelvic fluid was. No abnormal fluid collection in the pelvis or pe lvic lymphadenopathy. Bones: Mild degenerative change at both hips and right SI joint. Hypertrophic facet arthropathy lower lumbar spine. Grade 1 anterolisthesis L5-S1. There is grade 1 retrolisthesis L2-L3, L3-L4, and L4-L5 . IMPRESSION: 1. AORTOBIILIAC ENDOVASCULAR STENT GRAFT. COMPARED TO THE PRIOR EXAM, THERE IS INCREASED FOCAL PUD DLING OF CONTRAST IN THE POSTERIOR ASPECT OF THE [place] SAC SUGGESTING A TYPE II VERSUS TYPE IIIA END OLEAK (AT THE JUNCTION OF THE RADIOLUCENT SEGMENT WITH THE LIMBS OF THE ILIAC STENTS). 2. THE PREVIOUSLY SEEN TYPE II ENDOLEAK WITHIN THE LEFT SIDE OF THE [place] SAC JUST INFERIORLY APPEAR S SMALLER NOW. 3. OVERALL [place] SAC CALIBER IS RELATIVELY UNCHANGED AT THIS TIME (6.2 X 5.5 CM VERSUS 6.2 X 5.2 CM, PREVIOUSLY. 3. ATROPHIC RIGHT KIDNEY WITH SIMILAR DELAYED ENHANCEMENT OF THE LOWER POLE WHICH IS SUPPLIED BY AN A CCESSORY BRANCH. 4. CAD, STABLE EVENTRATION RIGHT HEMIDIAPHRAGM, GENERALIZED COLONIC DIVERTICULOSIS.
== END | disposition home or self-care (01) ==
LOC: RADCTMAIN 10:28
PROVIDERS: ATTEND Internal Medicine Interventional Cardiology
DX: N26.1 Atrophy of kidney (terminal) (principal); K57.30 Diverticulosis of large intestine without perforation or abscess without bleeding; I25.10 Atherosclerotic heart disease of native coronary artery without angina pectoris; R93.5 Abnormal findings on diagnostic imaging of other abdominal regions, including retroperitoneum
CPT/HCPCS: 82565; 84520; 36415; 74174; Q9967

== ENCOUNTER → 2021-06-27 | Outpatient (CLI) | payer MEDICARE ==
[~2021-06-27] MED LIST changes: -ALPRAZolam 0.25 MG TAB PO PRN; -HYDROmorphone 0.5 MG/0.5 ML SYRINGE IVP PRN; -LIDOCAINE 1% 20 ML VIAL (10MG/ML) FOR IV START INTRADERMA PRN; -ONDANSETRON 4 MG/2 ML VIAL IVP ONE; -SODIUM CHLORIDE 0.9% 1,000 ML in EMPTY BAG 1 BAG IV ONE; +SODIUM CHLORIDE 0.9% 50 ML IVPB NR; +SODIUM CHLORIDE 0.9% 500 ML 500 ML in EMPTY BAG 1 BAG IV PRN; +SOTROVIMAB (EUA) 500 MG in SODIUM CHLORIDE 0.9% 100 ML IVPB NR
[2021-06-27 16:33] VITALS: PULSE 53; RESP 16; TEMP 97.7
[2021-06-27 17:18] VITALS: BP 140/91
== END ==
LOC: PROCWHC3 15:43
PROVIDERS: ATTEND Family Medicine
DX: U07.1 COVID-19 (principal); E66.9 Obesity, unspecified; Z68.31 Body mass index [BMI] 31.0-31.9, adult; Z87.891 Personal history of nicotine dependence
CPT/HCPCS: 96360; Q0247; M0247

== ENCOUNTER → 2023-09-17 | Outpatient (CLI) | payer MEDICARE ==
[2023-09-17 13:25] LABS: African American GFR (CKD) 74 (>60 ml/min/1.73 sqM); Blood Urea Nitrogen 19 mg/dL (9-20); Non-African American GFR(CKD) 64 (>60 ml/min/1.73 sqM)
--- NOTE | 2023-09-17 15:04 | CT ---
EXAMINATION TYPE: CT angio abdomen pelvis DATE OF EXAM: 09/17/2023 COMPARISON: 06/23/2020 HISTORY: 83-year-old male I71.40 abdominal aortic aneurysm, pt has a stent TECHNIQUE: Contiguous axial scanning of the abdomen and pelvis before and after administration of 100 ml Isovue-370 IV contrast. Delayed images through the stent and coronal/sagittal reconstructions pe rformed. 3-D reconstructions generated on a dedicated independent workstation. CT DLP: 2208.8 mGycm Automated exposure control for dose reduction was used. FINDINGS: Heart normal size without pericardial effusion. Aortic valvular and mitral annular calcific ations noted. Partially visualized reticular and groundglass changes in the lower lungs with basilar bronchiolectasis. Findings suggest interstitial fibrosis. No pleural effusion. Liver dome incompletely imaged. Right hepatic resection changes. Couple tiny hepatic cysts measuring up to 7 mm redemonstrated. Portal venous system is patent. Gallbladder surgically absent. Adrenal glands, spleen, and pancreas within normal limits. Redemonstrated focal atrophy of the lower pole right kidney likely due to compromise of an accessory branch of the renal artery. Unchanged 2.37 m cortical cyst left kidney. No dilated mall bowel, free fluid, or free air. Some prominent fluid-filled small bowel loops mid to lower abdomen probably transient. Redemonstrated abdominal aortal biiliac endovascular stent graft extending from the level of the mus[place] ac axis to the distal common iliac arteries. Retroaortic left renal vein. The [place] sac measures 7.4 x 6.0 cm versus 6.1 x 5.4 cm, previously. Th ere is evidence of endoleak with delayed contrast visualization along the left posterior margin of th e [place] sac, axial series 9 image 45 suggesting a type II endoleak. Additional speckles of increased density at the distal aspect of the needle [place] sac only seen on the delayed scan, series 9, axial image 54. Normal appendix. Generalized colonic diverticulosis. Scattered mild to moderate stool. Redundant sigm oid colon. No pericolonic inflammatory change. Bladder not distended. Mild perivesicular fat stranding. Correlate to exclude underlying cystitis. Pe lvic phleboliths. Prostate gland mildly enlarged at 4.6 cm wide. No abnormal fluid collection in the pelvis or pelvic lymphadenopathy. Bones: Mild to moderate degenerative change of both hips. Advanced hypertrophic facet arthropathy low er lumbar spine with grade 1, nearly grade 2 anterolisthesis L5-S1. Accentuated lower lumbar lordosis . [facility] lower thoracic spine. IMPRESSION: 1. INTERVAL ENLARGEMENT OF THE [place] SAC CURRENTLY 7.4 X 6.0 CM (VERSUS 6.1 X 5.4 CM, PREVIOUSLY). T HERE IS EVIDENCE OF A TYPE II ENDOLEAK. POSSIBLE SECOND SITE OF LEAK AT THE ANTERIOR DISTAL ASPECT OF THE [place] SAC. 2. MILD PERIVESICULAR FAT STRANDING. CORRELATE WITH URINALYSIS AND PATIENT'S SYMPTOMS TO EXCLUDE CYST ITIS. 3. GENERALIZED COLONIC DIVERTICULOSIS WITHOUT ACUTE DIVERTICULITIS. HYPERTROPHIC FACET ARTHROPATHY LO WER LUMBAR SPINE WITH GRADE 1, NEARLY GRADE 2 ANTEROLISTHESIS L5-S1.
== END | disposition home or self-care (01) ==
LOC: RADCTMAIN 12:51
PROVIDERS: ATTEND Internal Medicine Interventional Cardiology
DX: I71.40 Abdominal aortic aneurysm, without rupture, unspecified (principal); K57.30 Diverticulosis of large intestine without perforation or abscess without bleeding; M47.816 Spondylosis without myelopathy or radiculopathy, lumbar region; M43.17 Spondylolisthesis, lumbosacral region
CPT/HCPCS: 82565; 84520; 36415; 74174; Q9967

== ENCOUNTER 2023-12-05 11:36 | Day surgery (SDC) | payer MEDICARE ==
[2023-12-04 11:15] VITALS: BMI 31.0
[~2023-12-05 11:36] MED LIST changes: +ALPRAZolam 0.25 MG TAB PO PRN; +ALPRAZolam 0.5 MG TAB PO PRN; +HEPARIN SODIUM,PORCINE (1 ML) 2,500 UNIT in SODIUM CHLORIDE 0.9% 250 ML IRRIGATION PRN; +HEPARIN SODIUM,PORCINE 10,000 UNIT in SODIUM CHLORIDE 0.9% 1,000 ML IRRIGATION PRN; +NITROGLYCERIN SL TABS 0.4 MG TAB SUBLINGUAL PRN; -SODIUM CHLORIDE 0.9% 50 ML IVPB NR; -SODIUM CHLORIDE 0.9% 500 ML 500 ML in EMPTY BAG 1 BAG IV PRN; -SOTROVIMAB (EUA) 500 MG in SODIUM CHLORIDE 0.9% 100 ML IVPB NR
[2023-12-05] MEDS: SODIUM CHLORIDE 0.9% 1,000 ML IV ONE (11:45)
[2023-12-05 12:20] LABS: Basophils % (A) 0 %; Eosinophils # (A) 0.3 k/uL (0-0.7); Eosinophils % (A) 4 %; HCT 48.5 % (39.0-53.0); HGB 16.3 gm/dL (13.0-17.5); Lymphocytes # (A) 0.8 k/uL (1.0-4.8); Lymphocytes % (A) 10 %; MCH 32.1 pg (25.0-35.0); MCHC 33.7 g/dL (31.0-37.0); MCV 95.4 fL (80.0-100.0); Mean Platelet Volume 9.5; Monocytes # (A) 0.8 k/uL (0-1.0); Monocytes % (A) 10 %; Neutrophils # (A) 5.8 k/uL (1.3-7.7); Neutrophils % (A) 74 %; Platelet Count 163 k/uL (150-450); RBC 5.09 m/uL (4.30-5.90); RDW 13.9 % (11.5-15.5); WBC 7.8 k/uL (3.8-10.6)
[2023-12-05 12:36] LABS: African American GFR (CKD) 72 (>60 ml/min/1.73 sqM); Anion Gap 6 mmol/L; Blood Urea Nitrogen 24 mg/dL (9-20); Calcium 9.8 mg/dL (8.4-10.2); Carbon Dioxide 34 mmol/L (22-30); Chloride 100 mmol/L (98-107); Glucose 119 mg/dL (74-99); Non-African American GFR(CKD) 62 (>60 ml/min/1.73 sqM); Sodium 140 mmol/L (137-145)
[2023-12-05] MEDS ORDERED: VERAPAMIL 2.5 MG/ML 2 ML AMP ONE (13:01)
[2023-12-05] MEDS ORDERED: LIDOCAINE 1% INJ 10MG/ML (20 ML MDV) ONE (13:01)
[2023-12-05] MEDS ORDERED: HEPARIN SODIUM 1,000 UN/ML (10ML VL) ONE (13:01)
[2023-12-05] MEDS: LIDOCAINE 1% INJ 10MG/ML (20 ML MDV) SQ ONE (13:09)
[2023-12-05] MEDS: HEPARIN SODIUM 1,000 UN/ML (10ML VL) IVP ONE ×2 (13:10)
[2023-12-05] MEDS: MIDAZOLAM 2 MG/2 ML VIAL IVP ONE (13:10)
[2023-12-05] MEDS: VERAPAMIL SYRINGE (5 MG/10 ML) INTRAARTER ONE (13:10)
[2023-12-05] MEDS: IOPAMIDOL-370 100ML BTL INJ ONE (13:25)
[2023-12-05] MEDS ORDERED: RX INFO: IV CONTRAST WAS GIVEN 1 EACH MISC MISCELLANE PRN (13:38)
--- NOTE | 2023-12-05 13:44 | P.PCN ---
Date of Procedure: 12/05/23 Operative Findings: CARDIAC CATHETERIZATION PERFORMING PHYSICIAN: Virgil Ann MD, RPVI PROCEDURE PERFORMED: 1. Selective right and left coronary angiogram 2. Left heart catheterization 3. Ultrasound-guided access of the right radial artery INDICATION: Chest discomfort concerning for angina in this 83-year-old gentleman who underwent coronary CTA that showed occlusive coronary artery disease COMPLICATION: None APPROACH: Right radial artery LEVEL OF SEDATION: Moderate with a sedation length of 20 minutes PROCEDURE DESCRIPTION: After obtaining an informed consent, the patient was brought to cardiac laborer tree tapping. Local anesthesia was performed using lidocaine subcutaneously. The right radial artery was cannulated using Seldinger technique, the guidewire passed easily, following that we advanced a 5-Tajik sheath dilator assembly, the wire and dilator were removed and sheath was flushed. Following that, 2 mg of verapamil along with 5000 unit heparin were given. Selective right and left coronary angiogram using a 6-Tajik JR4 and JL 3.5 catheters. Following that we did left heart catheterization using 6-Tajik pigtail catheter. The procedure was completed there was no complication. SELECTIVE CORONARY ANGIOGRAM: The right coronary artery: Large caliber vessel and a dominant vessel and the RCA is chronically occluded in the midportion but the RCA is severely calcified Left main: Heavily calcified with at least 50% disease distally The left circumflex: Large caliber vessel. The ostial LCx has a critical lesion appears to be in the range of 99.9%. The LCx is a codominant vessel. The LCx gives rise into an OM1 which works as a ramus intermedius and has critical lesion in the ostium as well The left anterior descending artery: The LAD is a large-caliber vessel. The ostial LAD from the left main is a hazy with mild to moderate disease. The mid LAD has also intermediate lesion appears to be in the range of 50% HEMODYNAMICS: The LVEDP was about 4 mmHg with about 22 mm mean gradient across the aortic valve CONCLUSION: 1. Extremely calcified right and left coronary system 2. Severe triple-vessel coronary artery disease as described above 3. Moderate aortic stenosis with a mean gradient of 22 mmHg POSTPROCEDURE MANAGEMENT: Giving the above anatomy I advised the patient to be evaluated for coronary artery bypass grafting along with aortic valve replacement
[2023-12-05 15:24] VITALS: RESP 16
[2023-12-05 16:38] LABS: Glucose,Whole Blood 212 mg/dL (70-110)
--- NOTE | 2023-12-05 16:56 | US ---
EXAMINATION TYPE: Pre-Operative Non-Invasive Evaluation of the hand for Potential Radial Artery Padmini , Measurements only DATE OF EXAM: 12/05/2023 4:40 PM CLINICAL INDICATION: Male, 83 years old with history of measurements only; PreOP SIDE PERFORMED: Left TECHNIQUE: Radial artery is measured utilizing real time linear array sonography. Dominant hand: Right Duplex Findings: Radial Artery: Color flow seen Measurements in mm, transverse view: Left Radial: Proximal: 2.6 x 2.1 mm Mid: 2.2 x 1.9 mm Distal: 2.4 x 2.0 mm IMPRESSION: 1. Left Radial artery measurements listed above. 2. Performing surgeon to determine viability as conduit.
--- NOTE | 2023-12-05 16:56 | US ---
EXAMINATION TYPE: US carotid duplex BILAT DATE OF EXAM: 12/05/2023 COMPARISON: NONE CLINICAL INDICATION: Male, 83 years old with history of preop cardiac surgery; PreOp, HTN on meds TECHNIQUE: Carotid duplex ultrasound examination. Indirect Doppler criteria was utilized. FINDINGS: EXAM MEASUREMENTS: RIGHT: Peak Systolic Velocity (PSV) cm/sec ----- Right CCA: 72.9 ----- Right ICA: 84.2 ----- Right ECA: 108.2 ICA/CCA ratio: 1.2 RIGHT: End Diastole cm/sec ----- Right CCA: 8.4 ----- Right ICA: 11.7 ----- Right ECA: 0.0 LEFT: Peak Systolic Velocity (PSV) cm/sec ----- Left CCA: 84.2 ----- Left ICA: 80.1 ----- Left ECA: 135.0 ICA/CCA ratio: 1.0 LEFT: End Diastole cm/sec ----- Left CCA: 9.5 ----- Left ICA: 7.6 ----- Left ECA: 0.0 VERTEBRALS (direction of flow): Right Vertebral: Antegrade Left Vertebral: Antegrade Rhythm: Normal PULMONOLOGY PHYSICIAN NOTES: Plaque bilateral bulbs. Slightly elevated left ECA velocity. IMPRESSION: Less than 50% stenosis of the bilateral carotid bifurcations. Criteria for Assigning % of Stenosis / Diameter reduction (Estimation based on the indirect measurements of the internal carotid artery velocities (ICA PSV). 1. Normal (no stenosis)=ICA PSV < 125 cm/s: ratio < 2.0: ICA EDV<40 cm/s. 2. Less than 50% stenosis=ICA PSV < 125 cm/s: ratio < 2.0: ICA EDV<40 cm/s. 3. 50 to 69% stenosis=ICA PSV of 125 to 230 cm/s: ration 2.0 ? 4.0: ICA EDV 40-100 cm/s. 4. Greater than 70% stenosis to near occlusion= ICA PSV > 230 cm/s: ratio > 4.0: ICA EDV > 100 cm/s. 5. Near occlusion= ICA PSV velocities may be low or undetectable: variable ratio and ICA EDV. 6. Total occlusion=unable to detect flow.
--- NOTE | 2023-12-05 16:57 | US ---
EXAMINATION TYPE: US vein mapping BILAT DATE OF EXAM: 12/05/2023 4:40 PM COMPARISON: NONE CLINICAL INDICATION: Male, 83 years old with history of preop cardiac surgery; PreOp SIDE PERFORMED: Bilateral TECHNIQUE: Lower extremity saphenous vein is examined and measured utilizing real time linear array sonography. Patient History: Smoker: Unknown Heart Disease: Yes Previous DVT: Unknown Vascular Surgery: No Hypertension: Yes Paralysis: No Varicosities: No Edema: Ankles DUPLEX FINDINGS: Greater Saphenous: Color flow seen Lesser Saphenous: Color flow seen Measurements in mm: Right Greater Saphenous: Groin: 5.6 x 5.6 mm High Thigh: 2.3 x 2.3 mm Mid Thigh: 2.4 x 2.4 mm Above Knee: 2.1 x 2.1 mm Knee: 2.3 x 1.8 mm Below Knee: 2.9 x 1.9 mm Mid Calf: 3.0 x 1.7 mm At Ankle: 3.7 x 2.2 mm Left Greater Saphenous: Groin: 4.3 x 5.2 mm High Thigh: 3.8 x 3.1 mm Mid Thigh: 2.9 x 2.9 mm Above Knee: 1.8 x 1.8 mm Knee: 1.8 x 1.5 mm Below Knee: 2.5 x 2.6 mm Mid Calf: 3.4 x 2.3 mm At Ankle: 3.0 x 2.3 mm IMPRESSION: 1. Bilateral GSV measurements listed above. 2. Performing surgeon to determine viability as conduit.
[2023-12-05] MEDS: ATORVASTATIN 80 MG TAB PO STA (17:02)
[2023-12-05] MEDS: ASPIRIN 325 MG TAB PO STA (17:02)
[2023-12-05] MEDS: SODIUM CHLORIDE 0.9% 1,000 ML in EMPTY BAG 1 BAG IV SCH (17:02)
[2023-12-05] MEDS: SODIUM CHLORIDE 0.9% 1,000 ML IV SCH (17:03)
[2023-12-05] MEDS: carvediloL 6.25 MG TAB PO SCH (17:57)
[2023-12-05] MEDS: carvediloL 3.125 MG TAB PO SCH (17:58)
--- NOTE | 2023-12-05 18:59 | US ---
EXAMINATION TYPE: US arterial LE single level DATE OF EXAM: 12/05/2023 6:41 PM CLINICAL INDICATION: Male, 83 years old with history of Ankle Brachial Index (TEGAN); preop History of: Smoker: Prev Hypertension: Yes Diabetic: Yes Hyperlipidemia: Yes TIA/CVA: No Previous Vascular Surgery: No CAD: No OH: No Vascular Ulcers: No Claudication: No Gangrene: No Right Brachial Pressure: deferred due to heart cath Left Brachial Pressure: 143 Ankle-Brachial Indices: Right: 1.0 Left: 1.1 (Vessel hardening > 1.4; Normal 0.9 - 1.4, Moderate 0.7 - 0.9, Severe 0.5-0.7) Toe Brachial Indices: Right: 0.68 Left: 0.73 IMPRESSION: Ankle-brachial indices within normal limits.
[2023-12-05 20:28] LABS: Glucose,Whole Blood 141 mg/dL (70-110)
[2023-12-05] MEDS: ATORVASTATIN 10 MG TAB PO SCH (20:45)
[2023-12-06 06:05] LABS: Glucose,Whole Blood 113 mg/dL (70-110)
--- NOTE | 2023-12-06 08:45 | XR ---
EXAMINATION TYPE: XR chest 2V DATE OF EXAM: 12/06/2023 COMPARISON: 03/13/2013 HISTORY: 83-year-old male preop open heart TECHNIQUE: PA and lateral views FINDINGS: Similar asymmetric elevation right hemidiaphragm. Heart upper limits of normal in size. Diffuse inter stitial opacities as well as patchy bilateral opacities are noted. IMPRESSION: Patchy bilateral interstitial infiltrates. Correlate for etiologies such as multifocal pneumonia, BUS PERSON DISHWASHER , interstitial fibrosis, and atypical pneumonias. Findings are new from the 2013 exam.
--- NOTE | 2023-12-06 09:41 | P.GSCN ---
History of Present Illness Consult date: 12/06/23 Reason for Consult: Coronary artery disease, aortic stenosis Requesting physician: Virgil Ann History of present illness: This is an 83-year-old gentleman who follows outpatient with Dr. Arvizu for primary care and Dr. Ann for cardiology. He has a previous medical history of aortic stenosis, hypertension, hyperlipidemia, type 2 diabetes, infrarenal abdominal aortic aneurysm status post endovascular repair with subsequent stable endoleak, obstructive sleep apnea with home CPAP use, and previous tobacco dependence. He had reported symptoms of shortness of breath with exertion and intermittent episodes of chest discomfort. He underwent coronary CTA revealing severe disease involving the ostial LAD with intermediate disease to severe disease involving the ramus and severe disease involving the left circumflex, as well as mild to moderate disease involving the right coronary artery. Recommended to undergo elective heart catheterization which was completed yesterday by Dr. Ann and which revealed distal left main stenosis 50%, chronic total occlusion of the mid RCA, ostial circumflex stenosis 99%, critical stenosis in the ramus intermedius, as well as mid LAD stenosis 50%. His most recent transthoracic echocardiogram completed in the cardiology office on November 22 demonstrated normal left ventricular systolic function with EF 55%, moderate concentric left ventricular hypertrophy, moderate aortic stenosis with valve area 1.13 cm, peak/mean gradient 49/27 mmHg, and peak velocity 3.49 cm/s, moderate aortic regurgitation, mild to moderate mitral regurgitation, and mild tricuspid regurgitation. Due to these findings consultation was placed to Dr. Alvarenga for surgical revascularization and aortic valve replacement recommendations. Review of Systems Review of systems was completed and was negative except as noted - Cardiovascular Reports as per HPI, Reports chest pain, Reports dyspnea on exertion Past Medical History Past Medical History: Coronary Artery Disease (CAD), Chest Pain / Angina, Diabetes Mellitus, Hearing Disorder / Deafness, Hyperlipidemia, Hypertension, Osteoarthritis (OA), Sleep Apnea/CPAP/BIPAP Additional Past Medical History / Comment(s): aortic stenosis, aortic aneurism, gout, CPAP use. History of Any Multi-Drug Resistant Organisms: None Reported Past Surgical History: Cholecystectomy Additional Past Surgical History / Comment(s): Vasectomy; endovascular repair of infrarenal abdominal aortic artery Past Anesthesia/Blood Transfusion Reactions: No Reported Reaction Date of Last Stent Placement:: 11/12/18 Past Psychological History: No Psychological Hx Reported Smoking Status: Former smoker Past Alcohol Use History: Rare Past Drug Use History: None Reported - Past Family History Mother Family Medical History: No Reported History Medications and Allergies Home Medications Medication Instructions Recorded Confirmed Type Aspirin [Adult Low Dose Aspirin EC] 81 mg PO DAILY 10/09/16 12/05/23 History Fish Oil/Dha/Epa [Fish Oil 1,200 1 cap PO DAILY 10/09/16 12/05/23 History mg Fish Oil] Losartan Potassium 100 mg PO DAILY 10/09/16 12/05/23 History metFORMIN HCL [Glucophage XR] 500 mg PO DAILY 10/09/16 12/05/23 History carvediloL [Coreg] 6.25 mg PO BID 11/08/18 12/05/23 History Atorvastatin [Lipitor] 10 mg PO BID 12/04/23 12/05/23 History carvediloL [Coreg] 3.125 mg PO BID 12/04/23 12/05/23 History hydroCHLOROthiazide 12.5 mg PO Q48H 12/04/23 12/05/23 History Allergies Allergy/AdvReac Type Severity Reaction Status Date / Time No Known Allergies Allergy Verified 12/04/23 10:03 Surgical - Exam Vital Signs Temp Pulse Resp BP Pulse Ox 98 F 68 18 192/81 98 12/05/23 12:01 12/05/23 12:01 12/05/23 12:01 12/05/23 12:12/05/23 12:01 CONSTITUTIONAL: Awake and alert, appears comfortable, cooperative, well- developed, well-nourished, no pain, no acute distress EYES: Pupils equal, round, reactive to light, normal ocular movement ENT: Moist mucous membranes without oral lesions present NECK: No masses, no bruits, trachea midline RESPIRATORY: Lungs sounds clear to auscultation bilaterally. Respirations even, nonlabored. Currently on room air with oxygen saturation 97%. Strong cou gh. No chest wall deformities. No clubbing or cyanosis present CARDIOVASCULAR: S1, S2 present. Regular rate and rhythm, sinus rhythm on telemetry. Palpable peripheral pulses bilaterally. No edema present. No calf pain or tenderness noted GASTROINTESTINAL: Abdomen soft, nontender, nondistended without masses or organomegaly noted. There is no rebound or guarding present. Active bowel soun ds present 4 quadrants. GENITOURINARY: Deferred INTEGUMENTARY: Skin is warm and dry with evidence of good perfusion. NEUROLOGIC: Cranial nerves II through XII intact, normal coordination, no o bvious motor or sensory deficits, speech is normal MUSKULOSKELETAL: Able to move all extremities, strength equal bilaterally, normal posture PSYCHIATRIC: Alert and oriented to person place and time, appropriate affect, intact judgment and insight CLINICAL FRAILTY SCORE: 4 Results - Labs 12/05/23 11:53 12/05/23 11:53 Abnormal Lab Results - Last 24 Hours (Table) 12/05/23 12/05/23 12/05/23 Range/Units 11:53 11:53 16:36 Lymphocytes # 0.8 L (1.0-4.8) k/uL Carbon Dioxide 34 H (22-30) mmol/L BUN 24 H (9-20) mg/dL Glucose 119 H (74-99) mg/dL POC Glucose (mg/dL) 212 H (70-110) mg/dL 12/05/23 12/06/23 Range/Units 20:00 06:03 Lymphocytes # (1.0-4.8) k/uL Carbon Dioxide (22-30) mmol/L BUN (9-20) mg/dL Glucose (74-99) mg/dL POC Glucose (mg/dL) 141 H 113 H (70-110) mg/dL Diabetes panel 12/05/23 Range/Units 11:53 Sodium 140 (137-145) mmol/L Potassium 4.0 (3.5-5.1) mmol/L Chloride 100 (98-107) mmol/L Carbon Dioxide 34 H (22-30) mmol/L BUN 24 H (9-20) mg/dL Creatinine 1.08 (0.66-1.25) mg/dL Glucose 119 H (74-99) mg/dL Calcium 9.8 (8.4-10.2) mg/dL Calcium panel 12/05/23 Range/Units 11:53 Calcium 9.8 (8.4-10.2) mg/dL Pituitary panel 12/05/23 Range/Units 11:53 Sodium 140 (137-145) mmol/L Potassium 4.0 (3.5-5.1) mmol/L Chloride 100 (98-107) mmol/L Carbon Dioxide 34 H (22-30) mmol/L BUN 24 H (9-20) mg/dL Creatinine 1.08 (0.66-1.25) mg/dL Glucose 119 H (74-99) mg/dL Calcium 9.8 (8.4-10.2) mg/dL Adrenal panel 12/05/23 Range/Units 11:53 Sodium 140 (137-145) mmol/L Potassium 4.0 (3.5-5.1) mmol/L Chloride 100 (98-107) mmol/L Carbon Dioxide 34 H (22-30) mmol/L BUN 24 H (9-20) mg/dL Creatinine 1.08 (0.66-1.25) mg/dL Glucose 119 H (74-99) mg/dL Calcium 9.8 (8.4-10.2) mg/dL - Imaging Chest x-ray: image reviewed CT scan - chest: report reviewed, image reviewed Additional studies: Preoperative testing reviewed Assessment and Plan Assessment: Triple-vessel coronary artery disease Moderate aortic stenosis Hypertension Hyperlipidemia, treated Type 2 diabetes Infrarenal abdominal aortic aneurysm status post endovascular repair with subsequent stable endoleak Previous tobacco dependence Moderate COPD, preoperative FEV1 52% of predicted Plan: The patient was seen and examined yesterday in the Extended Stay area with his present, and again this morning sitting up in bed on the cardiac stepdown unit in no acute distress. Denies any chest pain currently, denies shortness of breath. Case discussed with Dr. Alvarnega who will see the patient today. The usual perioperative course of open-heart surgery was discussed in detail with the patient his , risk and benefits were reviewed, all questions were answered. Preoperative testing was initiated. STS risk score calculated, will discuss with the patient. 5 m walk test performed without difficulty, #1 4.87 sec, #2 4.72 sec, #3 4.62 sec. Recommend continuing to maximize medical therapy with aspirin, statin, beta-gael. Aggressive risk factor management. Patient will need dental clearance which was discussed with him and the , the patient does see a dentist on a regular basis. More recommendations to follow once seen by Dr. Alvarenga. Thank you Dr. Ann for this consult, we look forward to working with you in the care of this patient. I have personally seen and examined the patient, performed the documentation and the assessment and plan as written. Number of minutes spent on the visit: 30. MARTIN Mcclain
[2023-12-06 11:10] VITALS: TEMP 98.2
[2023-12-06 11:32] LABS: Glucose,Whole Blood 151 mg/dL (70-110)
[2023-12-06 11:46] LABS: Basophils % (A) 0 %; Eosinophils # (A) 0.2 k/uL (0-0.7); Eosinophils % (A) 4 %; HCT 45.1 % (39.0-53.0); HGB 14.6 gm/dL (13.0-17.5); Lymphocytes # (A) 0.7 k/uL (1.0-4.8); Lymphocytes % (A) 12 %; MCH 31.4 pg (25.0-35.0); MCHC 32.5 g/dL (31.0-37.0); MCV 96.6 fL (80.0-100.0); Mean Platelet Volume 9.3; Monocytes # (A) 0.5 k/uL (0-1.0); Monocytes % (A) 8 %; Neutrophils # (A) 4.4 k/uL (1.3-7.7); Neutrophils % (A) 73 %; Platelet Count 110 k/uL (150-450); RBC 4.67 m/uL (4.30-5.90)
[2023-12-06 11:59] LABS: ALT 27 U/L (4-49); AST 34 U/L (17-59); African American GFR (CKD) 86 (>60 ml/min/1.73 sqM); Albumin 3.4 g/dL (3.5-5.0); Alkaline Phosphatase 81 U/L (38-126); Anion Gap 5 mmol/L; Blood Urea Nitrogen 20 mg/dL (9-20); Carbon Dioxide 28 mmol/L (22-30); Chloride 106 mmol/L (98-107); Glucose 140 mg/dL (74-99); Non-African American GFR(CKD) 74 (>60 ml/min/1.73 sqM); Potassium 4.3 mmol/L (3.5-5.1); Sodium 139 mmol/L (137-145); Total Bilirubin 1.3 mg/dL (0.2-1.3); Total Protein 6.2 g/dL (6.3-8.2)
[2023-12-06 12:05] LABS: Partial Thromboplastin Time 25.5 sec (22.0-30.0)
[2023-12-06 13:08] VITALS: BP 128/70; PULSE 52
--- NOTE | 2023-12-06 13:24 | P.DS ---
Providers Attending physician: Virgil Ann Consults: 12/05/23 14:03 Consult Physician Urgent Consulting Provider: Hugo Alvarenga Consult Reason/Comments: AORTIC VALVE DISEASE/TRIPLE VESSEL DISEASE SURGICAL CONSULT Do you want consulting provider notified?: Already Contacted Primary care physician: Hamzah Casper [facility] Course: This is an 83-year-old male who underwent coronary CTA that showed occlusive coronary disease. He underwent cardiac catheterization yesterday with Dr. Ann revealing extremely calcified right and left coronary system, severe triple- vessel disease, and moderate aortic stenosis with a mean gradient of 22 mmHg. RCA is chronically occluded in the midportion but the RCA is severely calcified. Left main is heavily calcified with at least 50% disease distally. The ostial left circumflex has a critical lesion appears to be in the range of 99.9%. The left circumflex gives rise into OM1 which works as a ramus intermedius and has critical lesion in the ostium as well. The LAD is a large-caliber vessel. The ostial LAD from the left main is hazy with mild to moderate disease. The mid LAD also has intermediate lesion appearing to be in the range of 50%. Consultation was placed to CT surgery for further evaluation. The patient was evaluated by Dr. Alvarenga. Plan is for patient to follow-up in the office post discharge and then patient will be scheduled for CABG and valve replacement. The patient was deemed stable for discharge home today per Dr. Ann. Please see EMR for further hospital course details. Discharge diagnosis Triple-vessel coronary artery disease Moderate aortic stenosis Hypertension Hyperlipidemia Diabetes COPD Nurse practitioner note has been reviewed by physician. Signing provider agrees with the documented findings, assessment, and plan of care documented by [employer] as a scribe. Plan - Discharge Summary Discharge Rx Participant: No New Discharge Prescriptions: New Nitroglycerin Sl Tabs [Nitrostat] 0.4 mg SUBLINGUAL Q5M PRN #100 tab PRN Reason: Chest Pain Continue metFORMIN HCL [Glucophage XR] 500 mg PO DAILY Losartan Potassium 100 mg PO DAILY Fish Oil/Dha/Epa [Fish Oil 1,200 mg Fish Oil] 1 cap PO DAILY Aspirin [Adult Low Dose Aspirin EC] 81 mg PO DAILY carvediloL [Coreg] 6.25 mg PO BID hydroCHLOROthiazide 12.5 mg PO Q48H Atorvastatin [Lipitor] 10 mg PO BID carvediloL [Coreg] 3.125 mg PO BID Discharge Medication List Aspirin [Adult Low Dose Aspirin EC] 81 mg PO DAILY 10/09/16 [History] Fish Oil/Dha/Epa [Fish Oil 1,200 mg Fish Oil] 1 cap PO DAILY 10/09/16 [History] Losartan Potassium 100 mg PO DAILY 10/09/16 [History] metFORMIN HCL [Glucophage XR] 500 mg PO DAILY 10/09/16 [History] carvediloL [Coreg] 6.25 mg PO BID 11/08/18 [History] Atorvastatin [Lipitor] 10 mg PO BID 12/04/23 [History] carvediloL [Coreg] 3.125 mg PO BID 12/04/23 [History] hydroCHLOROthiazide 12.5 mg PO Q48H 12/04/23 [History] Nitroglycerin Sl Tabs [Nitrostat] 0.4 mg SUBLINGUAL Q5M PRN #100 tab 12/06/23 [Rx] Follow up Appointment(s)/Referral(s): Virgil Ann MD [STAFF PHYSICIAN] - 1 Week (OFFICE WILL CALL WITH APPOINTMENT. ) Hugo Alvarenga MD [STAFF PHYSICIAN] - 12/12/23 1:00 pm Patient Instructions/Handouts: Moderate Sedation (DC), After Radial Heart Catheterization (GEN) Activity/Diet/Wound Care/Special Instructions: NO METFORMIN FOR 48 HOURS. No [address] for two days Ok to shower tomorrow (REMOVE AFTER 24 HOURS) but no baths, pools, lakes, doing dishes by hand for five days. Signs of infection IE: fever, rash, drainage from puncture site, swelling go to ER/doctor for immediate evaluation. Avoid using right wrist/hand to bend, flex, lift greater than 5 lbs for five days. For Heavy Bleeding of puncture site apply firm direct pressure and return to ER. Do not attempt to drive self. low sodium/low fat diet medications as directed by Cardiologists FALL PRECAUTIONS RELATED TO ANESTHESIA TODAY. MEDICATIONS DIRECTED BY DR ANN
[2023-12-06 14:36] LABS: Hepatitis A Antibody IgM Nonreactive (Nonreactive); Hepatitis B Core IgM Nonreactive (Nonreactive); Hepatitis B Surface Antigen Nonreactive (Nonreactive); Hepatitis C IgG Antibody Nonreactive (Nonreactive)
[2023-12-06 18:24] LABS: Chol/HDL Ratio 2.54 Ratio; LDL Cholesterol,Calculated 22.7 mg/dL (0.0-131.0)
== END 2023-12-06 14:49 ==
LOC: CATHCVL 11:36 → 3SCARD 13:29 → CATHCVL 12-06 14:49
PROVIDERS: ATTEND Internal Medicine Interventional Cardiology
DX: I25.10 Atherosclerotic heart disease of native coronary artery without angina pectoris (principal); I35.0 Nonrheumatic aortic (valve) stenosis; I10 Essential (primary) hypertension; E78.5 Hyperlipidemia, unspecified; E11.9 Type 2 diabetes mellitus without complications; F17.200 Nicotine dependence, unspecified, uncomplicated; Z79.01 Long term (current) use of anticoagulants; Z79.899 Other long term (current) drug therapy
CPT/HCPCS: 94150; 93458; 76937; 80061; 80053; 80048; 80074; 84443; 83735; 85025 ×2; 85610; 85730; 87070; 83036; 71046; 93931; 93970; 93922; 93880; 99152; C1769 ×2; C1894; J2250; J2001; J1644; Q9967